=== PATIENT | male | born 2000 | race Caucasian/White ===

== ENCOUNTER 2019-08-20 13:21 | Observation (INO) ==
[2019-08-20] MEDS ORDERED: ONDANSETRON INJ 2 MG/ML 2 ML VIAL IV STA (13:32)
[2019-08-20] MEDS ORDERED: SODIUM CHLORIDE 0.9% 1000ML 1,000 ML IV SCH (13:45)
--- NOTE | 2019-08-20 14:01 | Emergency Department Note ---
Entered by Kristen Connolly acting as a scribe for Niko Telles DO History of Present Illness General Chief complaint: Abdominal Pain Stated complaint: ABDOMINAL PAIN Source: patient History of Present Illness Provider complaint: abdominal pain Onset (ago): hour(s) 9 Location: abdomen Radiation: non-radiation Severity: severe Pain Consistency: + constant Maximum Pain Intensity: 8 Associated symptoms: + headaches, + nausea/vomiting and + other (fatigue) The patient is a 18 y/o male who presents to the emergency department for evaluation of constant severe abdominal pain and cramping on the right side that began 9 hours ago. The patient states that there is pain on the right side and generalized uncomfortableness in the entire abdomen. He reports he went to [facility] and they sent him to the ED for appendicitis evaluation. The patient reports he is also experiencing fatigue, nausea, and a headache. He denies any other symptoms. Home Medications Home Medications Medication Instructions Recorded Confirmed Type No Known Home Medications 08/20/19 08/20/19 History Allergies Allergy/AdvReac Type Severity Reaction Status Date / Time No Known Allergies Allergy Unverified 08/20/19 14:28 Past Med/Surg History Medical History Cough Fever Social History Feels Safe at Home: Yes Smoking Status: Never smoker Review of Systems See HPI for pertinent positives & negatives. and A total of 10 systems reviewed and were otherwise negative Physical Exam Vital Signs Vital Signs - 24 hr 08/20/19 13:26 08/20/19 14:04 08/20/19 14:06 Temperature 36.7 C Temperature Source Oral Pulse Rate 60 L 60 52 L Pulse Rate from SpO2 Sensor 55 L Pulse Rhythm Regular Regular Pulse Strength Normal Respiratory Rate 16 L 16 19 Respiratory Effort / Characteristics Non-Labored Respiratory Depth Normal Blood Pressure 142/73 137/63 Blood Pressure Mean 96 87 Pulse Oximetry 100 100 98 Oxygen Delivery Method Room Air Room Air Room Air 08/20/19 14:30 08/20/19 15:00 08/20/19 15:30 Temperature Temperature Source Pulse Rate 55 L 63 56 L Pulse Rate from SpO2 Sensor Pulse Rhythm Pulse Strength Respiratory Rate 27 H 18 18 Respiratory Effort / Characteristics Respiratory Depth Blood Pressure 121/62 118/64 121/66 Blood Pressure Mean 81 82 84 Pulse Oximetry 99 Oxygen Delivery Method Room Air GENERAL: Patient is awake, alert, and in no acute distress.Patient is resting comfortably and showing no signs of anxiety EYES: The conjunctivae are clear. The pupils are round and reactive. EARS, NOSE, MOUTH AND THROAT: The nose is without any evidence of any deformity. Mucous membranes are moist.Tongue is midline NECK: The neck is nontender and supple. RESPIRATORY: Normal respiratory effort is noted. There is no evidence of wheezing rhonchi or rales to auscultation. CARDIOVASCULAR: Regular rate and rhythm noted. There no murmurs rubs or gallops normal S1 normal S2 GASTROINTESTINAL: The abdomen is soft and nondistended. There is right lower quadrant tenderness to palpation but no guarding or rigidity. MUSCULOSKELETAL/EXTREMITIES: There is no evidence of gross deformity. Full range of motion is noted in the hips and shoulders. SKIN: There is no obvious evidence of any rash. There are no petechiae, pallor or cyanosis noted. NEUROLOGIC: Patient is awake alert and oriented x3. Course 1330: Past medical records reviewed. The patient was evaluated in room C02. A complete history and physical exam was performed. 1442: I updated the patient on his results and discussed the treatment plan moving forward. 1452: Surgery was paged. 1542: Dr. Morley [facility] will evaluate the patient. Administered Medications Ioversol (Optiray 320 100ml) 91 ml IV ONCE PRN PRN Reason: Interaction Checking Stop: 08/24/19 14:18 Last Admin: 08/20/19 14:19 Dose: 91 ml Documented by: [id number] Discontinued Medications Sodium Chloride (Nss 1000ml) 1,000 mls @ 999 mls/hr IV .[id number] BENNIE Stop: 08/20/19 14:45 Last Infusion: 08/20/19 15:05 Dose: 0 mls/hr Documented by: [id number] Admin: 08/20/19 14:01 Dose: 999 mls/hr Documented by: [id number] Ondansetron HCl (Zofran) 4 mg IV NOW STA Stop: 08/20/19 13:33 Last Admin: 08/20/19 14:01 Dose: 4 mg Documented by: [id number] Medical Decision Making Differential Diagnosis Differential considered: pancreatitis, hepatitis, or acute cholecystitis, AAA, UTI, pyelonephritis, kidney stones, appendicitis, diverticulitis, shingles, bowel obstruction mesenteric ischemia, intussusception,hernia, testicular torsion, ovarian torsion. Medical Records Attestation: I reviewed the patient's medical records. Home Medications Current Medication List: was personally reviewed by me Laboratory Data Attestation: I reviewed the patient's lab results. Result diagrams: 08/20/19 Unknown 08/20/19 Unknown Lab Results 08/20/19 08/20/19 08/20/19 Range/Units 14:05 Unknown Unknown WBC 11.87 H (4.8-10.8) K/uL RBC 4.89 (4.7-6.1) M/uL Hgb 14.8 (14.0-18.0) g/dL POC Hgb 15.3 (14.0-18.0) g/dl Hct 43.4 (42-52) % POC Hct 45 (42-52) % MCV 88.8 (80-100) fL MCH 30.3 (25-34) pg MCHC 34.1 (32-36) g/dL RDW Std Deviation 44.5 (36.4-46.3) fL RDW Coeff of Franci 13.6 (11.5-14.5) % Plt Count 203 (130-400) K/uL MPV 9.4 (7.4-10.4) fL Immature Gran % (Auto) 0.2 % Neut % (Auto) 69.4 % Lymph % (Auto) 19.6 % [place] % (Auto) 10.3 % Eos % (Auto) 0.3 % Baso % (Auto) 0.2 % Immature Gran # (Auto) 0.02 (0.00-0.02) K/uL Neut # (Auto) 8.24 H (1.4-6.5) K/uL Lymph # (Auto) 2.33 (1.2-3.4) K/uL [place] # (Auto) 1.22 H (0.11-0.59) K/uL Eos # (Auto) 0.04 (0-0.5) K/uL Baso # (Auto) 0.02 (0-0.2) K/uL POC Sodium 140 (135-144) mEq/L Sodium 137 (136-145) mmol/L POC Potassium 3.7 (3.3-5.0) mEq/L Potassium 3.6 (3.5-5.1) mmol/L POC Chloride 101 (101-112) mEq/L Chloride 103 (98-107) mmol/L Carbon Dioxide 26 (21-32) mmol/L POC Total CO2 27 (24-31) mEq/l Anion Gap 8.0 (3-11) POC Anion Gap 17.0 (16-25) mmol/L POC BUN 13 (7-18) mg/dl BUN 13 (7-18) mg/dl Creatinine 0.84 (0.6-1.4) mg/dl POC Creatinine 0.8 mg/dl Est Cr Clr Drug Dosing 159.9 ml/min Est GFR ( Amer) 147.1 Est GFR (Non-Af Amer) 126.9 BUN/Creatinine Ratio 15.0 (10-20) Glucose 89 (70-99) mg/dl POC Glucose (other) 97 (70-99) mg/dl Calcium 9.3 (8.5-10.1) mg/dl POC Ioniz Calcium Robinson 1.19 mmol/l Total Bilirubin 0.9 (0.2-1) mg/dl AST 20 (15-37) U/L ALT 27 (12-78) U/L Alkaline Phosphatase 85 (45-117) U/L Total Protein 8.8 H (6.4-8.2) gm/dl Albumin 4.6 (3.4-5.0) gm/dl Globulin 4.2 H (2.5-4.0) gm/dl Albumin/Globulin Ratio 1.1 (0.9-2) Lipase 129 (73-393) U/L Imaging Data Radiologist's Impression: Radiology results as stated below per my review and the radiologist's interpretation: CT SCAN OF THE ABDOMEN AND PELVIS WITH IV CONTRAST CLINICAL HISTORY: Generalized abdominal pain. COMPARISON STUDY: No priors. TECHNIQUE: Following the IV administration of 91 cc of Optiray 320, CT scan of the abdomen and pelvis is performed from the lung bases to the proximal femora. Images are reviewed in the axial, sagittal, and coronal planes. IV contrast was administered without complication. A dose lowering technique was utilized adhering to the principles of ALARA. CT DOSE: 350.74 mGy.cm FINDINGS: Lung bases: The heart is normal in size and without pericardial effusion. The lung bases are clear. Liver: The contrast-enhanced liver is normal in size, contour, and attenuation. There is no intrahepatic biliary ductal dilatation. The hepatic veins and portal veins are patent. Gallbladder: Unremarkable. Spleen: Normal in size and attenuation. Pancreas: Unremarkable. Adrenal glands: Unremarkable. Kidneys: The contrast enhanced kidneys are normal in size and without hydro nephrosis. The kidneys enhance symmetrically. Abdominal vasculature: The abdominal aorta is normal in course and caliber. Bowel: There is no bowel obstruction. The appendix is distended and fluid-f illed as seen on image #3[id number]. The appendix measures up to 10 mm in diameter. The appendiceal wall is thickened and hyperemic, and there is progressive inflammation. The appearance is consistent with acute appendicitis. No abscess is seen. Peritoneum: There is no intraperitoneal free air or abdominal ascites. Lymphadenopathy: None. Pelvic viscera: The bladder, prostate, and seminal vesicles are normal as visualized. A left-sided varicocele is suggested. Trace free fluid is noted in the pelvis. Skeletal structures: No lytic or blastic lesions are seen. IMPRESSION: Findings are consistent with acute appendicitis. There is no evidence of abscess or perforation. Electronically signed by: Shivam Peter M.D. 08/20/2019 2:31 PM Blood Pressure Blood Pressure Findings: Elevated blood pressure Blood Pressure Disposition: elevated BP felt to be situational MDM Narrative The patient is a 18-year-old male who presented to the emergency department for right-sided abdominal pain. The patient had reproducible right-sided abdominal pain on physical exam. He had an elevated white blood cell count. He was treated with IV fluids in the emergency department. On subsequent reevaluation he continued to have right-sided abdominal pain. CT abdomen and pelvis was obtained. It does appear to be consistent with appendicitis. I discussed the patient's laboratory and radiographic studies with him. Because of his findings on CAT scan I also discussed his case with the on-call general surgeon. They have agreed to evaluate the patient in the emergency department for further management disposition. Impression & Plan Appendicitis, Abdominal pain, acute, right lower quadrant Discharge Plan Visit Data Chief Complaint: Abdominal Pain Stated Complaint: ABDOMINAL PAIN ED Provider: Niko Telles Discharge Problem: Appendicitis, Abdominal pain, acute, right lower quadrant Patient Disposition: Being Evaluated by Surgeon Forms Stand Alone Forms: [employer] Prescriptions Prescriptions: No Action No Known Home Medications RF: 0 Referrals Referrals: PCP,NO [Primary Care Provider] - Discharge Problem: Appendicitis Qualifiers: Appendicitis type: unspecified Qualified Code(s): K37 - Unspecified appendicitis The scribe's documentation has been prepared under my direction and personally reviewed by me in its entirety. I confirm that the note above accurately reflects all work, treatment, procedures, and medical decision making performed by me.
[2019-08-20 14:18] LABS: iSTAT Creatinine 0.8 mg/dl; iSTAT Hemoglobin 15.3 g/dl (14.0-18.0); iSTAT Ionized Calcium 1.19 mmol/l; iSTAT Potassium 3.7 mEq/L (3.3-5.0)
[2019-08-20] MEDS ORDERED: IOVERSOL 100ml IV PRN (14:19)
[2019-08-20 14:23] LABS: Basophils # (auto) 0.02 K/uL (0-0.2); Basophils % (auto) 0.2 %; Eosinophils # (auto) 0.04 K/uL (0-0.5); Eosinophils % (auto) 0.3 %; Hematocrit (blood only) 43.4 % (42-52); Hemoglobin 14.8 g/dL (14.0-18.0); Immature Granulocytes # (auto) 0.02 K/uL (0.00-0.02); Immature Granulocytes % (auto) 0.2 %; Lymphocytes # (auto) 2.33 K/uL (1.2-3.4); Lymphocytes % (auto) 19.6 %; Mean Corpuscular Hemoglobin 30.3 pg (25-34); Mean Corpuscular Hgb Conc 34.1 g/dL (32-36); Mean Corpuscular Volume 88.8 fL (80-100); Mean Platelet Volume 9.4 fL (7.4-10.4); Monocytes # (auto) 1.22 K/uL (0.11-0.59); Monocytes % (auto) 10.3 %; Neutrophils # (auto) 8.24 K/uL (1.4-6.5); Neutrophils % (auto) 69.4 %; Platelet Count 203 K/uL (130-400); RDW Coefficient of Variation 13.6 % (11.5-14.5); RDW Standard Deviation 44.5 fL (36.4-46.3); Red Blood Count 4.89 M/uL (4.7-6.1); White Blood Count 11.87 K/uL (4.8-10.8)
--- NOTE | 2019-08-20 14:32 | CT Scan Report ---
CT SCAN OF THE ABDOMEN AND PELVIS WITH IV CONTRAST CLINICAL HISTORY: Generalized abdominal pain. COMPARISON STUDY: No priors. TECHNIQUE: Following the IV administration of 91 cc of Optiray 320, CT scan of the abdomen and pelvi s is performed from the lung bases to the proximal femora. Images are reviewed in the axial, sagittal , and coronal planes. IV contrast was administered without complication. A dose lowering technique wa s utilized adhering to the principles of ALARA. CT DOSE: 350.74 mGy.cm FINDINGS: Lung bases: The heart is normal in size and without pericardial effusion. The lung bases are clear. Liver: The contrast-enhanced liver is normal in size, contour, and attenuation. There is no intrahepa tic biliary ductal dilatation. The hepatic veins and portal veins are patent. Gallbladder: Unremarkable. Spleen: Normal in size and attenuation. Pancreas: Unremarkable. Adrenal glands: Unremarkable. Kidneys: The contrast enhanced kidneys are normal in size and without hydronephrosis. The kidneys enh ance symmetrically. Abdominal vasculature: The abdominal aorta is normal in course and caliber. Bowel: There is no bowel obstruction. The appendix is distended and fluid-filled as seen on image #3 [id number]. The appendix measures up to 10 mm in diameter. The appendiceal wall is thickened and hyperemic, a nd there is progressive inflammation. The appearance is consistent with acute appendicitis. No absces s is seen. Peritoneum: There is no intraperitoneal free air or abdominal ascites. Lymphadenopathy: None. Pelvic viscera: The bladder, prostate, and seminal vesicles are normal as visualized. A left-sided va ricocele is suggested. Trace free fluid is noted in the pelvis. Skeletal structures: No lytic or blastic lesions are seen. IMPRESSION: Findings are consistent with acute appendicitis. There is no evidence of abscess or perfo ration. Electronically signed by: Shivam Peter M.D. 08/20/2019 2:31 PM
[2019-08-20 14:45] LABS: Albumin Level 4.6 gm/dl (3.4-5.0); Calcium 9.3 mg/dl (8.5-10.1); Creatinine Clr Calc Pharmacy 159.9 ml/min; Est GFR (African American) 147.1; Est GFR (Non-African American) 126.9; Potassium 3.6 mmol/L (3.5-5.1)
[2019-08-20 14:48] LABS: Albumin Globulin Ratio 1.1 (0.9-2); Bilirubin,Total 0.9 mg/dl (0.2-1); Globulin 4.2 gm/dl (2.5-4.0); Total Protein 8.8 gm/dl (6.4-8.2)
[2019-08-20 16:35] LABS: Appearance Urine Clear (Clear); Bilirubin Urine Negative (Negative); Blood Urine Negative (Negative); Color Urine Yellow; Glucose Urine UA Negative (Negative); Ketones Urine Negative (Negative); Leukocyte Esterase Urine Negative (Negative); Nitrite Urine Negative (Negative); Protein Urine Negative (Negative); Specific Gravity Urine 1.044 (1.000-1.030); Urobilinogen Urine Negative (Negative)
[2019-08-20] MEDS ORDERED: fentaNYL citrate 100 MCG/2 ML VIAL IV PRN (16:36)
[2019-08-20] MEDS ORDERED: ATROPINE SULFATE 0.1 MG/ML 10ML SYR IV PRN (16:36)
[2019-08-20] MEDS ORDERED: ePHEDrine sulfate 50 MG/ML AMP IV PRN (16:36)
[2019-08-20] MEDS ORDERED: ONDANSETRON INJ 2 MG/ML 2 ML VIAL IV PRN ×2 (16:36→19:41)
--- NOTE | 2019-08-20 16:49 | Anesthesiology Consultation ---
Date of Service August 20, 2019 Assessment & Plan (1) Encounter for pre-operative examination: Chart Review Chart Review: Acceptable Risk for Surgery Consults Requested none ASA [id number] Proposed Anesthesia Anesthesia Type: General Risk / Benefits Reviewed With: PT / POA / Parent / Guardian, Accepts Plan and Informed Consent Obtained History Surgery Operation Date: 08/20/19 11:15 Proposed Procedures p Laparoscopic Appendectomy - Diallo Morley MD Height/Weight Height: 6 ft 1 in Weight: 82.9 kg Allergies Allergy/AdvReac Type Severity Reaction Status Date / Time No Known Allergies Allergy Unverified 08/20/19 14:28 Medications Home Medications Medication Instructions Recorded Confirmed Last Taken No Known Home Medications 08/20/19 08/20/19 Unknown Active Medications Generic Name Dose Route Start Last Admin Trade Name Freq PRN Reason Stop Dose Admin Ioversol 91 ml 08/20/19 14:19 08/20/19 14:19 Optiray 320 100ml IV 08/24/19 14:18 91 ml ONCE PRN Administration Interaction Checking NPO Date Last Intake of Fluids: 08/20/19 Time Last Intake of Fluids: 09:00 Date Last Intake of Solids: 08/19/19 Time Last Intake of Solids: 22:00 Past Medical History Medical History Cough Fever Exercise / Class Metabolic Activity 1 > 8 Run/Swim/Ski/Tennis Past Anesthesia History No Hx of Anesthesia Complications and No Family Hx of Anesthesia Complications History of PONV No Hx of PONV and No Hx of Motion Sickness Social History Smoking Status: Never smoker Physical Exam Vital Signs Last Vital Signs Temp 98.1 F 08/20/19 13:26 Pulse 57 L 08/20/19 16:44 Resp 16 08/20/19 16:44 BP 129/78 08/20/19 16:44 Pulse Ox 98 08/20/19 16:44 ENMT Mouth: no dentition abnormality Thyromental Distance: > or= 3.5 Finger Breadths Mallampati Class: I Neck normal visual inspection Respiratory normal respiratory effort Auscultation: lungs clear to auscultation bilaterally Cardiovascular Rate/Rhythm: regular rate and regular rhythm Testing Laboratory Results 08/20/19 Unknown 08/20/19 Unknown Urine Color Yellow 08/20/19 15:50 Urine Appearance Clear (Clear) 08/20/19 15:50 Urine pH 8.0 (4.5-7.5) H 08/20/19 15:50 Ur Specific [place] 1.044 (1.000-1.030) H 08/20/19 15:50 Urine Protein Negative (Negative) 08/20/19 15:50 Urine Glucose (UA) Negative (Negative) 08/20/19 15:50 Urine Ketones Negative (Negative) 08/20/19 15:50 Urine Nitrite Negative (Negative) 08/20/19 15:50 Ur Leukocyte Esterase Negative (Negative) 08/20/19 15:50 08/20/19 14:05 POC Glucose (other) 97
[2019-08-20] MEDS ORDERED: BUPIVACAINE 0.5 % 5 MG/1 ML MPF 30ML VIAL ONE (16:58)
--- NOTE | 2019-08-20 16:58 | History & Physical Report ---
Date of Service August 20, 2019 Assessment & Plan (1) Appendicitis: This patient's history, physical, laboratory data and CT findings are all consistent with acute appendicitis. We discussed conservative management versus surgical intervention. I explained the laparoscopic appendectomy and the possible need to convert to an open procedure and possible complications. He has chosen surgery. He has signed a consent form. History of Present Illness Chief Complaint: Right lower quadrant pain with nausea Primary Care Provider: NO PCP This is a 18-year-old male who presented to the emergency room with a complaint of abdominal pain that began this morning at 4 AM. When he went to bed last night he was feeling well. The discomfort was kind of a generalized discomfort initially and then migrated to the right lower quadrant where it is presently located. He has no radiation of the pain to his back or to the left side. This is associated with nausea but no vomiting. He had a loose stool this morning but it was not diarrheal. He thinks there may have been a little bit of blood with 1 of his bowel movements but he has no melena. He has no dysuria or hematuria. The pain is exacerbated by motion. He has never had pain similar to this in the past. Allergies Allergy/AdvReac Type Severity Reaction Status Date / Time No Known Allergies Allergy Unverified 08/20/19 14:28 Home Medications Home Medications Medication Instructions Recorded Confirmed Type No Known Home Medications 08/20/19 08/20/19 History Past Med/Surg History Medical History Cough Fever Social History Feels Safe at Home: Yes Smoking Status: Never smoker Review of Systems Review of Systems: All systems reviewed & are unremarkable except as noted in HPI & below Physical Exam Constitutional: no acute distress Neck: Thyroid: normal thyroid Respiratory: normal respiratory effort, lungs clear to auscultation Cardiovascular: Rate/Rhythm: regular rate and regular rhythm Gastrointestinal (Abdomen): Inspection/Auscultation: abdomen normal to inspection; abdomen not distended Percussion/Palpation: + abdomen tender (Right lower quadrant) and abdomen soft; abdomen not rigid and no abdominal mass Skin: no rashes, warm and dry Lymphatic: no cervical lymphadenopathy Results & Data Vital Signs (Past 12 Hours) Vital Signs Temp Pulse Resp BP Pulse Ox 08/20/19 16:44 57 L 16 129/78 98 08/20/19 16:30 57 L 16 129/78 98 08/20/19 16:23 60 18 122/67 98 08/20/19 15:30 56 L 18 121/66 08/20/19 15:00 63 18 118/64 08/20/19 14:30 55 L 27 H 121/62 99 08/20/19 14:06 52 L 19 137/63 98 08/20/19 14:04 60 16 100 08/20/19 13:26 36.7 C 60 L 16 L 142/73 100 Laboratory Results 08/20/19 08/20/19 08/20/19 Range/Units Unknown Unknown 15:50 WBC 11.87 H (4.8-10.8) K/uL RBC 4.89 (4.7-6.1) M/uL Hgb 14.8 (14.0-18.0) g/dL POC Hgb (14.0-18.0) g/dl Hct 43.4 (42-52) % POC Hct (42-52) % MCV 88.8 (80-100) fL MCH 30.3 (25-34) pg MCHC 34.1 (32-36) g/dL RDW Std Deviation 44.5 (36.4-46.3) fL RDW Coeff of Franci 13.6 (11.5-14.5) % Plt Count 203 (130-400) K/uL MPV 9.4 (7.4-10.4) fL Immature Gran % (Auto) 0.2 % Neut % (Auto) 69.4 % Lymph % (Auto) 19.6 % [place] % (Auto) 10.3 % Eos % (Auto) 0.3 % Baso % (Auto) 0.2 % Immature Gran # (Auto) 0.02 (0.00-0.02) K/uL Neut # (Auto) 8.24 H (1.4-6.5) K/uL Lymph # (Auto) 2.33 (1.2-3.4) K/uL [place] # (Auto) 1.22 H (0.11-0.59) K/uL Eos # (Auto) 0.04 (0-0.5) K/uL Baso # (Auto) 0.02 (0-0.2) K/uL POC Sodium (135-144) mEq/L Sodium 137 (136-145) mmol/L POC Potassium (3.3-5.0) mEq/L Potassium 3.6 (3.5-5.1) mmol/L POC Chloride (101-112) mEq/L Chloride 103 (98-107) mmol/L Carbon Dioxide 26 (21-32) mmol/L POC Total CO2 (24-31) mEq/l Anion Gap 8.0 (3-11) POC Anion Gap (16-25) mmol/L POC BUN (7-18) mg/dl BUN 13 (7-18) mg/dl Creatinine 0.84 (0.6-1.4) mg/dl POC Creatinine mg/dl Est Cr Clr Drug Dosing 159.9 ml/min Est GFR ( Amer) 147.1 Est GFR (Non-Af Amer) 126.9 BUN/Creatinine Ratio 15.0 (10-20) Glucose 89 (70-99) mg/dl POC Glucose (other) (70-99) mg/dl Calcium 9.3 (8.5-10.1) mg/dl POC Ioniz Calcium Robinson mmol/l Total Bilirubin 0.9 (0.2-1) mg/dl AST 20 (15-37) U/L ALT 27 (12-78) U/L Alkaline Phosphatase 85 (45-117) U/L Total Protein 8.8 H (6.4-8.2) gm/dl Albumin 4.6 (3.4-5.0) gm/dl Globulin 4.2 H (2.5-4.0) gm/dl Albumin/Globulin Ratio 1.1 (0.9-2) Lipase 129 (73-393) U/L Urine Color Yellow Urine Appearance Clear (Clear) Urine pH 8.0 H (4.5-7.5) Ur Specific [place] 1.044 H (1.000-1.030) Urine Protein Negative (Negative) Urine Glucose (UA) Negative (Negative) Urine Ketones Negative (Negative) Urine Blood Negative (Negative) Urine Nitrite Negative (Negative) Urine Bilirubin Negative (Negative) Urine Urobilinogen Negative (Negative) Ur Leukocyte Esterase Negative (Negative) 08/20/19 Range/Units 14:05 WBC (4.8-10.8) K/uL RBC (4.7-6.1) M/uL Hgb (14.0-18.0) g/dL POC Hgb 15.3 (14.0-18.0) g/dl Hct (42-52) % POC Hct 45 (42-52) % MCV (80-100) fL MCH (25-34) pg MCHC (32-36) g/dL RDW Std Deviation (36.4-46.3) fL RDW Coeff of Franci (11.5-14.5) % Plt Count (130-400) K/uL MPV (7.4-10.4) fL Immature Gran % (Auto) % Neut % (Auto) % Lymph % (Auto) % [place] % (Auto) % Eos % (Auto) % Baso % (Auto) % Immature Gran # (Auto) (0.00-0.02) K/uL Neut # (Auto) (1.4-6.5) K/uL Lymph # (Auto) (1.2-3.4) K/uL [place] # (Auto) (0.11-0.59) K/uL Eos # (Auto) (0-0.5) K/uL Baso # (Auto) (0-0.2) K/uL POC Sodium 140 (135-144) mEq/L Sodium (136-145) mmol/L POC Potassium 3.7 (3.3-5.0) mEq/L Potassium (3.5-5.1) mmol/L POC Chloride 101 (101-112) mEq/L Chloride (98-107) mmol/L Carbon Dioxide (21-32) mmol/L POC Total CO2 27 (24-31) mEq/l Anion Gap (3-11) POC Anion Gap 17.0 (16-25) mmol/L POC BUN 13 (7-18) mg/dl BUN (7-18) mg/dl Creatinine (0.6-1.4) mg/dl POC Creatinine 0.8 mg/dl Est Cr Clr Drug Dosing ml/min Est GFR ( Amer) Est GFR (Non-Af Amer) BUN/Creatinine Ratio (10-20) Glucose (70-99) mg/dl POC Glucose (other) 97 (70-99) mg/dl Calcium (8.5-10.1) mg/dl POC Ioniz Calcium Robinson 1.19 mmol/l Total Bilirubin (0.2-1) mg/dl AST (15-37) U/L ALT (12-78) U/L Alkaline Phosphatase (45-117) U/L Total Protein (6.4-8.2) gm/dl Albumin (3.4-5.0) gm/dl Globulin (2.5-4.0) gm/dl Albumin/Globulin Ratio (0.9-2) Lipase (73-393) U/L Urine Color Urine Appearance (Clear) Urine pH (4.5-7.5) Ur Specific [place] (1.000-1.030) Urine Protein (Negative) Urine Glucose (UA) (Negative) Urine Ketones (Negative) Urine Blood (Negative) Urine Nitrite (Negative) Urine Bilirubin (Negative) Urine Urobilinogen (Negative) Ur Leukocyte Esterase (Negative) Diagnostic Findings CT SCAN OF THE ABDOMEN AND PELVIS WITH IV CONTRAST CLINICAL HISTORY: Generalized abdominal pain. COMPARISON STUDY: No priors. TECHNIQUE: Following the IV administration of 91 cc of Optiray 320, CT scan of the abdomen and pelvis is performed from the lung bases to the proximal femora. Images are reviewed in the axial, sagittal, and coronal planes. IV contrast was administered without complication. A dose lowering technique was utilized adhering to the principles of ALARA. CT DOSE: 350.74 mGy.cm FINDINGS: Lung bases: The heart is normal in size and without pericardial effusion. The lung bases are clear. Liver: The contrast-enhanced liver is normal in size, contour, and attenuation. There is no intrahepatic biliary ductal dilatation. The hepatic veins and portal veins are patent. Gallbladder: Unremarkable. Spleen: Normal in size and attenuation. Pancreas: Unremarkable. Adrenal glands: Unremarkable. Kidneys: The contrast enhanced kidneys are normal in size and without hydronephrosis. The kidneys enhance symmetrically. Abdominal vasculature: The abdominal aorta is normal in course and caliber. Bowel: There is no bowel obstruction. The appendix is distended and fluid- filled as seen on image #304. The appendix measures up to 10 mm in diameter. The appendiceal wall is thickened and hyperemic, and there is progressive i nflammation. The appearance is consistent with acute appendicitis. No abscess is seen. Peritoneum: There is no intraperitoneal free air or abdominal ascites. Lymphadenopathy: None. Pelvic viscera: The bladder, prostate, and seminal vesicles are normal as visualized. A left-sided varicocele is suggested. Trace free fluid is noted in the pelvis. Skeletal structures: No lytic or blastic lesions are seen. IMPRESSION: Findings are consistent with acute appendicitis. There is no evidence of abscess or perforation. (1) Appendicitis Appendicitis type: unspecified Qualified Code(s): K37 - Unspecified appendicitis
[2019-08-20] MEDS ORDERED: CEFAZOLIN 250 MG/ML 1 GM VIAL ONE ×2 (16:59→17:00)
[2019-08-20] MEDS ORDERED: HEPARIN (PORCINE) 1000 UNIT/ML 10 ML (CATH LAB USE ONLY) ONE (17:00)
[2019-08-20] MEDS ORDERED: PROPOFOL IV EMULSION 10 MG/ML 20 ML VIAL IV ONE (17:05)
[2019-08-20] MEDS ORDERED: MIDAZOLAM HCL 1 MG/ML 2ML VIAL ONE (17:05)
[2019-08-20] MEDS ORDERED: NEOSTIGMINE METHYLSULFATE 5 MG/5 ML SYR ONE (17:05)
[2019-08-20] MEDS ORDERED: ONDANSETRON INJ 2 MG/ML 2 ML VIAL ONE (17:05)
[2019-08-20] MEDS ORDERED: GLYCOPYRROLATE 0.2 MG/ML VIAL ONE (17:05)
[2019-08-20] MEDS ORDERED: LIDOCAINE HCL 2% 2 ML VIAL/AMP(20MG/ML) INFIL ONE (17:05)
[2019-08-20] MEDS ORDERED: DEXAMETHASONE SOD INJ 4 MG/ML VIAL ONE (17:05)
[2019-08-20] MEDS ORDERED: fentaNYL citrate 100 MCG/2 ML VIAL ONE ×2 (17:05→18:17)
[2019-08-20] MEDS ORDERED: ROCURONIUM BROMIDE 10 MG/ML 5 ML VIAL ONE (17:53)
[2019-08-20] MEDS ORDERED: LARYING-O-JET KIT (LTA) ONE (17:53)
[2019-08-20] MEDS ORDERED: PHENYLEPHRINE 100MCG/ML 5ML SYR ONE (17:53)
[2019-08-20] MEDS ORDERED: CEFAZOLIN 2000MG 2,000 MG/15 ML SYR IV ONE (18:03)
[2019-08-20] MEDS ORDERED: ePHEDrine sulfate 50 MG/ML SYR ONE (18:09)
[2019-08-20] MEDS ORDERED: KETOROLAC 30 MG/ML VIAL ONE (18:23)
--- NOTE | 2019-08-20 18:47 | Post Operative Brief Note ---
Immediate Post Op Note v1 Date of Surgery August 20, 2019 Pre & Post Diagnosis Operation Date: 08/20/19 11:15 Pre-Op Diagnosis: appendicitis Post-Op Diagnosis: appendicitis Procedure Operation Date: 08/20/19 11:15 Actual Procedures p Laparoscopic Appendectomy - Diallo Morley MD Surgeon Diallo Morley MD Support Services Manager None Estimated Blood Loss 5 Findings Consistent with Post-Op Diagnosis Specimens Appendix Drains [place] Catheter (16F/5cc espana placed after induction, without difficulty, no initial urine return. Dr. Morley notified, okayed continuation of placement with balloon inflation. clear, yellow urine noted in tubing after draping. ) Complications none
--- NOTE | 2019-08-20 19:23 | Anesthesiology Progress Note ---
Date of Service August 20, 2019 Anesthesia Post Procedure Vital Signs Vital Signs: Temp Pulse Pulse Pulse Resp BP BP 08/20/19 19:15 55 L 16 119/61 08/20/19 19:05 70 18 111/70 08/20/19 18:56 98.8 F 62 20 121/67 08/20/19 16:53 98.4 F 63 18 124/77 08/20/19 16:44 57 L 16 129/78 08/20/19 16:30 57 L 16 129/78 08/20/19 16:23 60 18 122/67 08/20/19 15:30 56 L 18 121/66 08/20/19 15:00 63 18 118/64 08/20/19 14:30 55 L 27 H 121/62 08/20/19 14:06 52 L 19 137/63 08/20/19 14:04 60 16 08/20/19 13:26 98.1 F 60 L 16 L 142/73 Pulse Ox 08/20/19 19:15 97 08/20/19 19:05 100 08/20/19 18:56 97 08/20/19 16:53 99 08/20/19 16:44 98 08/20/19 16:30 98 08/20/19 16:23 98 08/20/19 15:30 08/20/19 15:00 08/20/19 14:30 99 08/20/19 14:06 98 08/20/19 14:04 100 08/20/19 13:26 100 Pain Intensity Abdomen: Pain Intensity: 4 Transfer of Care Handoff Completed per policy Notes Mental Status: alert / awake / arousable and participated in evaluation Patient Amnestic to Procedure: Yes Nausea / Vomiting: adequately controlled Pain: adequately controlled Airway Patency, RR, SpO2: stable & adequate BP & HR: stable & adequate Hydration State: stable & adequate Anesthetic Complications: no major complications apparent and Pt Satisfied with anesthetic care
[2019-08-20] MEDS ORDERED: MoRPHine SULFATE 4 MG/ML 1 ML CARP\\VIAL IV PRN (19:41)
[2019-08-20] MEDS: D5W AND 1/2NSS + 20MEQ KCL 20 MEQ/1,000 ML BAG IV SCH (20:24)
[2019-08-20] MEDS: OXYCODONE/ACETAMINOPHEN 5mg/325mg TAB PO PRN (21:09)
--- NOTE | 2019-08-20 23:57 | Operative Report ---
DATE OF OPERATION: 08/20/2019 PREOPERATIVE DIAGNOSIS: Appendicitis. POSTOPERATIVE DIAGNOSIS: Appendicitis. PROCEDURE: Laparoscopic appendectomy. SURGEON: Diallo Morley MD FINDINGS: The appendix was firm, dilated in the distal one-half. The proximal one half and especially at the junction with the cecum was normal. The cecum itself was normal. There was no evidence of perforation or abscess. TECHNIQUE: The patient was given a general anesthetic and the area was prepped and draped in the usual sterile fashion. Transverse incision was made below the umbilicus, carried down through the subcutaneous tissue to the fascia which was grasped with 2 Wesley clamps and incised between. The peritoneum was identified, incised, and the introducer was placed bluntly. The abdomen was then insufflated to a pressure of 15 mmHg with carbon dioxide. The lower midline introducer was placed under direct vision through small skin incision. Traction was placed superiorly on the cecum and the appendix was easily identified. The left lower quadrant introducer was placed under direct vision. I was able to grasp the appendix. It was attached to the lateral wall of the abdomen and these attachments were variable thickness, but were easily divided with cautery allowing me to elevate the tip of the appendix. This dissection was carried until the mesoappendix was identified. I then was able to elevate the base of the appendix and establish a plane between the base of the appendix and the mesoappendix. I also established an opening in the mid portion of the mesoappendix and it was then divided using 2 firings of the Endo-ORA stapler. This allowed me to completely elevate the appendix and confirmed that I was at the base. The appendix was then amputated using the Endo-ORA stapler. The appendix was placed into an Endobag and brought out through the left lower quadrant introducer site with ease. That introducer was replaced. The right lower quadrant was irrigated and irrigation was removed. Staple lines were inspected and there was no bleeding. Any irrigation that entered the right upper quadrant or pelvis was removed. The gas was allowed to escape and the introducers were removed. The fascia of the umbilical and left lower quadrant introducer sites was closed with interrupted 0 Vicryl and skin of all the incisions was closed with 4-0 Monocryl in either an interrupted or running subcuticular fashion. The skin was anesthetized with 0.5% Marcaine. Skin was cleansed, dried, benzoin placed, Steri-Strips applied. Estimated blood loss was 5 mL. Sponge, needle and instrument counts were correct prior to closure. The patient tolerated the surgical procedure without complication and was transferred to recovery. I attest to the content of the Intraoperative Record and any orders documented therein. Any exception s are noted below.
[2019-08-21] MEDS ORDERED: INFLUENZA VIRUS QUAD VACCINE 0.5 ML SYR IM ONE (01:00)
[2019-08-21] MEDS ORDERED: INFLUENZA ADMINISTRATION CHARGE ONE (01:00)
[2019-08-21] MEDS: OXYCODONE/ACETAMINOPHEN 5mg/325mg TAB PO PRN ×2 (09:14→13:52)
[2019-08-21] MEDS: D5W AND 1/2NSS + 20MEQ KCL 20 MEQ/1,000 ML BAG IV SCH (09:15)
--- NOTE | 2019-08-21 09:24 | Surgery Progress Note ---
Date of Service August 21, 2019 Assessment & Plan (1) Appendicitis: Postoperative day #1 status post laparoscopic appendectomy Doing well Can discharge to home Discussed postoperative activity restrictions Can follow-up with me in 3 weeks in the office Subjective Postoperative day #1 status post laparoscopic cholecystectomy Pain controlled No nausea or vomiting and tolerated a regular diet last night Ambulated Physical Exam Gastrointestinal (Abdomen): Inspection/Auscultation: abdomen normal to inspection and + abdominal surgical incision (Incisions are clean dry and intact); abdomen not distended Percussion/Palpation: + abdomen tender (Incisional only) and abdomen soft Results & Data Vital Signs (Past 12 Hours) Vital Signs Temp Pulse Resp BP Pulse Ox 08/21/19 07:33 37.0 C 66 16 95/44 L 98 08/21/19 03:55 36.6 C 74 18 104/48 L 97 08/20/19 23:35 36.6 C 73 18 115/62 96 08/20/19 22:25 37.0 C 89 18 95/50 L 97 08/20/19 21:35 37.0 C 71 18 114/63 96 (1) Appendicitis Appendicitis type: unspecified Qualified Code(s): K37 - Unspecified appendicitis
--- NOTE | 2019-08-21 09:42 | Anesthesiology Progress Note ---
Date of Service August 21, 2019 Anesthesia Post Procedure Vital Signs Vital Signs: Temp Pulse Pulse Pulse Pulse Resp BP 08/21/19 07:33 37.0 C 66 16 08/21/19 03:55 36.6 C 74 18 08/20/19 23:35 36.6 C 73 18 08/20/19 22:25 37.0 C 89 18 08/20/19 21:35 37.0 C 71 18 08/20/19 20:40 36.4 C L 65 17 08/20/19 20:10 36.5 C 67 18 08/20/19 19:41 36.4 C L 69 16 08/20/19 19:25 36.9 C 55 L 16 08/20/19 19:15 55 L 16 08/20/19 19:05 70 18 08/20/19 18:56 37.1 C 62 20 08/20/19 16:53 36.9 C 63 18 08/20/19 16:44 57 L 16 129/78 08/20/19 16:30 57 L 16 129/78 08/20/19 16:23 60 18 122/67 08/20/19 15:30 56 L 18 121/66 08/20/19 15:00 63 18 118/64 08/20/19 14:30 55 L 27 H 121/62 08/20/19 14:06 52 L 19 137/63 08/20/19 14:04 60 16 08/20/19 13:26 36.7 C 60 L 16 L 142/73 BP Pulse Ox 08/21/19 07:33 95/44 L 98 08/21/19 03:55 104/48 L 97 08/20/19 23:35 115/62 96 08/20/19 22:25 95/50 L 97 08/20/19 21:35 114/63 96 08/20/19 20:40 118/73 97 08/20/19 20:10 119/58 L 96 08/20/19 19:41 122/71 99 08/20/19 19:25 116/70 96 08/20/19 19:15 119/61 97 08/20/19 19:05 111/70 100 08/20/19 18:56 121/67 97 08/20/19 16:53 124/77 99 08/20/19 16:44 98 08/20/19 16:30 98 08/20/19 16:23 98 08/20/19 15:30 08/20/19 15:00 08/20/19 14:30 99 08/20/19 14:06 98 08/20/19 14:04 100 08/20/19 13:26 100 Notes Mental Status: alert / awake / arousable and participated in evaluation Nausea / Vomiting: adequately controlled Pain: adequately controlled Airway Patency, RR, SpO2: stable & adequate BP & HR: stable & adequate Hydration State: stable & adequate
--- NOTE | 2019-08-31 09:18 | Discharge Summary ---
Date of Service August 31, 2019 Admission HPI Per Admitting Provider This is a 18-year-old male who presented to the emergency room with a complaint of abdominal pain that began this morning at 4 AM. When he went to bed last night he was feeling well. The discomfort was kind of a generalized discomfort initially and then migrated to the right lower quadrant where it is presently located. He has no radiation of the pain to his back or to the left side. This is associated with nausea but no vomiting. He had a loose stool this morning but it was not diarrheal. He thinks there may have been a little bit of blood with 1 of his bowel movements but he has no melena. He has no dysuria or hematuria. The pain is exacerbated by motion. He has never had pain similar to this in the past. Principal Diagnosis Acute appendicitis Discharge Data Allergies Allergy/AdvReac Type Severity Reaction Status Date / Time No Known Allergies Allergy Unverified 08/20/19 14:28 Consultations 08/20/19 16:12 Consult General Surgery Stat Procedures Performed Operation Date: 08/20/19 11:15 Actual Procedures p Laparoscopic Appendectomy - Diallo Morley MD Ordered Studies 08/20/19 13:32 CT abd pelvis IV con only Stat Hospital Course (1) Appendicitis: Patient was taken to operating room for laparoscopic appendectomy. Patient found to have dilated and firm distal appendix consistent with appendicitis however no perforation or abscess. Patient tolerated procedure well and was transferred to recovery and then to medical/surgical floor for postop care. Postoperative day #1, vitals stable, afebrile, post op pain controlled, tolerating regular diet, no n/v, ambulating and urinating without difficulty. Patient was discharged home on POD # 1 in stable condition. Total Time Total Time Spent Total Time Spent (In Minutes): 15 Total Time Includes: Examination of the Patient, Discharge Planning and Medication Reconciliation Discharge Plan Discharge Items Patient Disposition: Home - Self-Care Reason For Visit: ABDOMINAL PAIN Discharge Diagnosis: Acute Appendicitis Activity: Per Instructions section Non-emergency contact: Surgeon Call non-emergency contact if: your pain is not controlled, your pain is worsening, your pain is concerning for you, you have a fever, your temperature is above 101, your wound has increased redness, your wound has increased drainage and your wound pain has increased Follow-up/Referrals: PCP,NO [Primary Care Provider] - Diet: Regular Addtl Attending Provider Instructions: Post-Surgical ~Discharge Instructions Activity Recommendations: - lifting limitation: (10 pounds for 2 weeks), - exercise/sex/sports limit: (nonstrenuous for 2 weeks), - driving or machine use limit: (none for 1 week), - Shower/bathe limit: (may shower beginning tomorrow) Diet: - Resume previous diet SPECIAL CARE INSTRUCTIONS: - May shower in 24 hours. Let water run over area and pat dry. - Leave steri strips on for one week. - Call the surgeon's office with any questions or concerns - - (ex. temperature higher than 101 degrees F, excessive bleeding or pain). MEDICATIONS: - Resume previous medications unless instructed otherwise by your surgeon. - Ibuprofen 600 mg every 6 hours with food - Percocet 1 every 4 hours, as needed for pain FOLLOW UP VISIT: - If not already scheduled, please call the office to schedule a two week follow-up appointment. Office number Pending Studies at Discharge: Yes (appendix pathology, will be reviewed at follow up visit) Stand-Alone Forms: [facility], Opioid Pain Management Medications and DC Order Prescriptions: New oxycodone-acetaminophen [Percocet] 5-325 mg Tablet 1 tab PO Q4H PRN (Reason: pain) Qty: 5 RF: 0 No Action No Known Home Medications RF: 0 Discharge Orders: Discharge Order (Routine); Ordered 08/21/19 Ordered By: Diallo Agustin/Other Patient Handouts: DVT Prevent Admission Data Admit Date/Time: 08/20/19 19:02 Attending Provider: Diallo Morley Admit Provider: Diallo Morley Primary Care Provider: PCP,NO Other Providers: Diallo Morley Other Interventions: Discharge Summary Assessment (RN) Last Done: 08/21/19 09:50 DC Date/Time DO NOT enter until pt leaves facility: 08/21/19 14:27
== END 2019-08-21 14:27 | disposition home or self-care (01) ==
LOC: EDBD → ED 13:21 → OR 16:44 → 3W 16:44
DX: K35.80 Unspecified acute appendicitis